=== PATIENT | female | born 1940 | race Caucasian/White ===

== ENCOUNTER → 2017-10-23 09:47 | Day surgery (SDC) | payer MEDICARE, OTHER, SELFPAY ==
[2017-10-23 10:30] VITALS: BP 155/82; PULSE 69; RESP 16; TEMP 36.6; O2SAT 97; BMI 21.2
[2017-10-23] MEDS: PROPARACAINE 0.5% OPHTH SOL 2 DROPS EYE-OP (10:30)
[2017-10-23] MEDS: CATARACT EYE COMPOUND (10 DROPS/SYRINGE) 3 DROPS EYE-OP (10:31)
--- NOTE | 2017-10-23 11:21 | PM.PREOP ---
Pre-operative Note Interval Note Pre-op Check: History & Physical Reviewed by Physician
[2017-10-23] MEDS: MOXIFLOXACIN OPHTH DROPS 3 ML BOTTLE 2 DROPS INJ (11:29)
[2017-10-23] MEDS: CHONDROIDTIN/SOD HYALURONATE 1.05 ML SYRINGE INTRAOCULA (11:29)
[2017-10-23] MEDS: TRIAMCINOLONE 50 MG/5 ML VIAL INJ (11:30)
[2017-10-23] MEDS: LIDOCAINE JELLY 2% 5 ML 1 APPLIC TOP (11:30)
[2017-10-23] MEDS: TETRACAINE 0.5% OPHTH DROPS 15 ML 2 DROPS EYE-LEFT (11:31)
[2017-10-23] MEDS: PHENYLEPHRINE/LIDOCAINE 3ML VIAL (OR) EYE-OP (11:32)
[2017-10-23] MEDS: BALANCED SALT IRRIG SOLN NO.2 500 ML, EPINEPHrine 1 MG IRR (11:34)
--- NOTE | 2017-10-23 11:41 | P.OP_ITS ---
Operative Date/Time/Diagnoses - Pre-op diagnosis: Cataract Left eye Post-op diagnosis: same Procedure & Clinicians Surgeon: Zurdo Aguilar Anesthesia Type: MAC +/- and Sedation Operative Notes Procedure in detail: Patient brought to the operating suite. Tetracaine drops placed in the left eye. Patient was prepped and draped in sterile manner. Wire lid speculum was placed in the eye. Betadine drops were placed on the eye. This was irrigated. Lidocaine jelly was placed on the eye. A paracentesis port was created with a side-port blade. 0.1 mL 1% preservative free lidocaine was injected into the anterior chamber. The anterior chamber was deepened with viscoelastic. 2.6 mm keratome was used to create a temporal clear corneal incision. Cystotome and Utrata forceps were used to create continuous tear capsulorrhexis. Balanced salt solution was used to hydro dissect the nucleus. The phacoemulsification handpiece was inserted and the nucleus was removed using the stop and chop technique. The irrigation aspiration handpiece was inserted and the remaining cortex was removed. Anterior chamber was deepened with viscoelastic. An Hidalgo ZCB00 intraocular lens with a power of 23.5 was injected into the capsular bag. Irrigation aspiration handpiece was inserted and the remaining viscoelastic was removed. Incision was hydrated with balanced salt solution and found to be leak free with pressure with Weck- Kiana sponges. 0.1 mL Vigamox injected anterior chamber. 0.3 mL Kenalog 10 mg was injected subconjunctivally. Lid speculum was removed. The patient left the operating room in excellent condition. Complications: none Condition: stable Disposition: same day surgery
[2017-10-23 11:45] VITALS: BP 134/68; PULSE 56; RESP 16; TEMP 36.7; O2SAT 98
== END ==
PROVIDERS: Visit Provider Ophthalmology
DX: H25.12 Age-related nuclear cataract, left eye (principal)
CPT/HCPCS: J0171; J2250; J3010; J3301

== ENCOUNTER 2017-10-30 10:13 | Day surgery (SDC) | payer MEDICARE, OTHER, SELFPAY ==
[2017-10-30 10:54] VITALS: BP 151/80; PULSE 67; RESP 16; TEMP 36.5; O2SAT 97
[2017-10-30 10:55] VITALS: BMI 21.1
[2017-10-30] MEDS: CATARACT EYE COMPOUND (10 DROPS/SYRINGE) 3 DROPS EYE-OP (11:03)
[2017-10-30] MEDS: PROPARACAINE 0.5% OPHTH SOL 2 DROPS EYE-OP (11:03)
--- NOTE | 2017-10-30 12:10 | PM.PREOP ---
Pre-operative Note Interval Note Pre-op Check: History & Physical Reviewed by Physician
--- NOTE | 2017-10-30 12:11 | P.OP_ITS ---
Operative Date/Time/Diagnoses - Pre-op diagnosis: Cataract Right eye Post-op diagnosis: same Procedure & Clinicians Procedure: Cataract Surgery Same procedure as scheduled: Yes Surgeon: Zurdo Aguilar Anesthesia Type: MAC +/- and Sedation Operative Notes Procedure in detail: Patient brought to the operating suite. Tetracaine drops placed in the right eye. Patient was prepped and draped in sterile manner. Wire lid speculum was placed in the eye. Betadine drops were placed on the eye. This was irrigated. Lidocaine jelly was placed on the eye. A paracentesis port was created with a side-port blade. 0.1 mL 1% preservative free lidocaine was injected into the anterior chamber. The anterior chamber was deepened with viscoelastic. 2.6 mm keratome was used to create a temporal clear corneal incision. Cystotome and Utrata forceps were used to create continuous tear capsulorrhexis. Balanced salt solution was used to hydro dissect the nucleus. The phacoemulsification handpiece was inserted and the nucleus was removed using the stop and chop technique. The irrigation aspiration handpiece was inserted and the remaining cortex was removed. Anterior chamber was deepened with viscoelastic. An Hidalgo ZCB00 intraocular lens with a power of 24.0 was injected into the capsular bag. Irrigation aspiration handpiece was inserted and the remaining viscoelastic was removed. Incision was hydrated with balanced salt solution and found to be leak free with pressure with Weck- Kiana sponges. 0.1 mL Vigamox injected anterior chamber. 0.3 mL Kenalog 10 mg was injected subconjunctivally. Lid speculum was removed. The patient left the operating room in excellent condition. Complications: none Condition: stable Disposition: same day surgery
[2017-10-30] MEDS: TRIAMCINOLONE 50 MG/5 ML VIAL INJ (12:19)
[2017-10-30] MEDS: MOXIFLOXACIN OPHTH DROPS 3 ML BOTTLE 2 DROPS INJ (12:19)
[2017-10-30] MEDS: CHONDROIDTIN/SOD HYALURONATE 1.05 ML SYRINGE INTRAOCULA (12:19)
[2017-10-30] MEDS: TETRACAINE 0.5% OPHTH DROPS 15 ML 2 DROPS EYE-RIGHT (12:20)
[2017-10-30] MEDS: BALANCED SALT IRRIG SOLN NO.2 500 ML, EPINEPHrine 1 MG IRR (12:20)
[2017-10-30] MEDS: PHENYLEPHRINE/LIDOCAINE 3ML VIAL (OR) EYE-OP (12:21)
[2017-10-30] MEDS: LIDOCAINE JELLY 2% 5 ML 1 APPLIC TOP (12:21)
[2017-10-30 12:30] VITALS: BP 127/70; PULSE 72; RESP 15; TEMP 36.6; O2SAT 98
== END 2017-10-30 12:40 | disposition home or self-care (01) ==
PROVIDERS: Visit Provider Ophthalmology
DX: H25.11 Age-related nuclear cataract, right eye (principal)
CPT/HCPCS: J0171; J2250; J3010; J3301

== ENCOUNTER → 2018-01-22 10:42 | Outpatient (CLI) | payer MEDICARE, OTHER, SELFPAY ==
--- NOTE | 2018-01-22 | DI.US.S_ITS ---
PROCEDURE: US RENAL COMPLETE INDICATIONS: UTI TECHNIQUE: Real-time scanning was performed of the kidneys and bladder, with image documentation. COMPARISON: None. FINDINGS: Kidneys: Kidneys are normal in size. Right kidney measures 11.9 cm long; left kidney measures 10.8 cm long. Right renal cortical thickness is 1.5 cm; left renal cortical thickness is 1.5 cm. Renal cortical echotexture is normal. No hydronephrosis or nephrolithiasis. No suspicious solid mass lesions. Right superior pole cortical cyst measuring 11 mm. Bladder: Pre-void bladder volume is 469 mL. Post-void residual is 112 mL. Pre-void images demonstrate no intraluminal masses or stones. On pre-void images, bilateral ureteral jets are noted with color Doppler interrogation. (Of note, ureteral jets may not be detectable in up to 25% of cases due to insufficient differences in specific gravity between ureteral and bladder urine). Miscellaneous: No free pelvic fluid. IMPRESSION: 1. Right renal cortical cyst otherwise normal appearance of the kidneys. 2. Roughly 112 cc urinary bladder PVR. Dictated by: Marvin Mejia [facility] Interpreted: Lawrence Rodriguez MD on 01/22/2018 at 11:53 Approved by: Lawrence Rodriguez M.D. on 01/22/2018 at 12:15
== END ==
PROVIDERS: Visit Provider Urology
DX: N39.0 Urinary tract infection, site not specified (principal); N28.1 Cyst of kidney, acquired
CPT/HCPCS: 76770

== ENCOUNTER → 2018-06-04 07:17 | Outpatient (CLI) | payer MEDICARE, OTHER, SELFPAY ==
[2018-06-04 08:48] LABS: Cholesterol 268 mg/dL (140-199); HDL Cholesterol 79 mg/dL (40-60); LDL Cholesterol Calculated 169 mg/dL (<100); Triglycerides 99 mg/dL (35-150)
[2018-06-04 09:00] LABS: C-Reactive Protein Quant < 0.5 mg/dL (<1.0)
== END ==
PROVIDERS: Visit Provider Internal Medicine
DX: Z00.00 Encounter for general adult medical examination without abnormal findings (principal); E78.2 Mixed hyperlipidemia
CPT/HCPCS: 36415; 80061; 86140